=== PATIENT | female | born 2000 | race Caucasian/White ===

== ENCOUNTER 2023-07-31 17:41 | Inpatient (IN) | payer OTHER, MEDICAID, SELFPAY ==
[2023-07-31 19:05] LABS: Add Manual Diff / Slide Review NO; Basophils Absolute Auto 0 /uL (0-100); Basophils Percent Auto 0.2 % (0-2); Eosinophils Absolute Auto 100 /uL (0-450); Eosinophils Percent Auto 0.5 % (2-4); Hematocrit 31.2 % (36-46); Hemoglobin 10.3 g/dL (12.0-16.0); Lymphocytes Absolute Auto 2200 /uL (1100-4500); Lymphocytes Percent Auto 9.6 % (25-40); Mean Corpuscular HGB Conc 33.2 % (30-36); Mean Corpuscular Hemoglobin 29.1 PG (26-34); Mean Corpuscular Volume 87.9 fL (80-100); Monocytes Absolute Auto 1600 /uL (0-900); Neutrophils Absolute Auto 18700 /uL (1500-7000); Neutrophils Percent Auto 82.7 % (50-75); Platelet Count 382 X10^3/uL (150-400); Red Blood Cell Count 3.55 X10^6/uL (4.0-5.2); Red Cell Distribution Width 13.9 % (11.6-14.8); White Blood Cell Count 22.6 X10^3/uL (4.5-11.0)
[2023-07-31 19:10] VITALS: BP 119/78
--- NOTE | 2023-07-31 19:52 | P.HPOB_ITS ---
OB HPI Date/Time Date of admission: 07/31/23 Date Patient Seen: 07/31/23 Time Patient Seen: 18:45 History of Present Condition Chief complaint: labor : 2 Para: 0 Estimated Date of Delivery: 08/16/23 Estimated Gestational Age (weeks): 37w5d Narrative: Joanne Roach is a 23 year old female at 37w5 days by 10 week ultrasound. She has been laboring off and on for a couple of days and presented to clinic tonight with contractions more consistent for 20 hours and a cervical exam indicating she was in active labor. Joanne had a complicated by a previa which resolved at 28 weeks. She is allergic to penicillin. Joanne is here [facility], well supported by her boyfriend, Roger, and her grandmother, Sabiha, and they are giving baby Sabiha's middle name as her middle name. Joanne is planning an unmedicated labor and declines an IV at this time. She denies loss of fluid, headache, epigastric pain or visual changes. She is excited to labor in the tub. History of Present care: good care, initiated at week # (5), number of visits (9) and pounds weight gain (35) Dating criteria: based on 1st trimester US only Ultrasounds: normal 1st trimester US and abnormal US findings (Placenta previa diagnosed on anatomy scan; resolved with 28 week ultrasound) Obstetrical complications: other (Early term labor) Medical complications: none Preadmission Labs Blood type: O (+) positive -: Antibody screen: negative, Cystic fibrosis screen: unknown, GBS status: negative, HBsAG: negative, HIV: negative, HSV 1: unknown, HSV 2: unknown and RPR/VDLR: negative -: Chlamydia screen: not detected and Gonorrhea screen: not detected -: Rubella: immune and Varicella: immune HCT: 34.2 HCAB: negative PAP: Normal Cell-free DNA: Negative, XX 1 hr GTT: 91 Prior (ies) History: History of SAB x 1 (2014) Evaluation Evaluation Baseline heart rate: 145 Variability: Moderate (11-25) monitor accelerations: Present Monitor Decelerations: Absent Contraction Frequency (minutes): 3 (2-5) Uterine Contraction Intensity: Moderate Status: Category l Dilation (cm): 5 Effacement (%): 90 Dilation: >/=5 cm Effacement: >/=80% station: 0 Position of cervix: anterior Consistency: soft Ozuna score: 12 Comments: Membranes intact. Cervical exam performed in clinic at 1715 today. [facility] Medical History (Updated 07/31/23 @ 20:07 by Svetlana Maguire CNM, SHAUNA) Penicillin allergy Family History (Updated 07/31/23 @ 20:08 by Svetlana Maguire CNM, SHAUNA) Other Cancer Congenital heart disease Diabetes mellitus Lung disease Social History (Updated 07/31/23 @ 20:10 by Svetlana Maguire CNM, SHAUNA) do you feel safe at home: Yes Smoking Status: Former smoker Smokeless tobacco user: other alcohol intake: current Meds Home Medications and Allergies Home Medications Medication Instructions Recorded Confirmed Type vit no.133-ferrous See Rx Instructions .Route .COMPLEX 07/31/23 07/31/23 History fumarate 28 mg-folic acid 800 mcg tablet () Allergies Allergy/AdvReac Type Severity Reaction Status Date / Time No Known Drug Allergies Allergy Verified 07/31/23 19:14 Review of Systems Review of Systems Narrative: All negative except as mentioned in HPI OB Exam Vital signs Blood Pressure: 119/78 Pulse Rate: 99 Respiratory Rate: 18 Temperature: 98.2 F Narrative Exam Narrative: SpO2 100% Extremities Lower extremity: Yes normal to inspection GI Inspection: normal to inspection Objective Labs 07/31/23 18:15 Labs: Laboratory Results - last 24 hr 07/31/23 18:15 WBC 22.6 H RBC 3.55 L Hgb 10.3 L Hct 31.2 L MCV 87.9 MCH 29.1 MCHC 33.2 RDW 13.9 Plt Count 382 Neut % (Auto) 82.7 H Lymph % (Auto) 9.6 L Grayson % (Auto) 7.0 Eos % (Auto) 0.5 L Baso % (Auto) 0.2 Neut # (Auto) 32447 H Lymph # (Auto) 2200 Grayson # (Auto) 1600 H Eos # (Auto) 100 Baso # (Auto) 0 Blood Type O Positive Antibody Screen Negative Assessment and Plan Assessment and Plan Assessment and Plan narrative: with early term Active labor GBS negative Rh positive FHR Cat 1 on admission strip Anemia of late Admit to L&D Intermittent auscultation Labor support as needed Plan for hemorrhage kit in room Anticipate NSVB
[2023-07-31 20:16] VITALS: BP 119/78; PULSE 99; RESP 18; TEMP 36.8
--- NOTE | 2023-07-31 21:59 | PM.OBPNLAB ---
Date/Time Date Patient Seen: 07/31/23 Time Patient Seen: 21:15 Pain Control Pain control: tolerating well Pelvic Exam Dilation (cm): 6.5 Effacement (%): 90 station: 0 Amniotic membrane status: Ruptured (questionable ROM while in tub approx 2049, clear fluid with bloody mucus) Comments: BP: 118/56 HR: 93 Temp: 36.9 C Contractions Contractions on admission: regular Monitor mode: External Contraction frequency (min): 3 Contraction duration (min): 1 Contraction pattern: Regular Contraction intensity: Moderate Status Heart Rate Baseline: 150 Comments: Decreases noted with contractions Increases noted Reassuring FHR by doppler Assessment and Plan Assessment: active labor Plan: continuous present management
[2023-07-31] MEDS: ONDANSETRON 4 MG ODT SL (22:04)
--- NOTE | 2023-08-01 01:45 | PM.OBPNLAB ---
Date/Time Date Patient Seen: 08/01/23 Time Patient Seen: 01:30 Pain Control Pain control: tolerating well Comments: Joanne is working hard with contractions; just got out of the tub for the 2nd time. Requesting rupture of membranes. Using nitrous oxide for some pain relief. Very well supported by Roger and her grandmother, Sabiha. Pelvic Exam Dilation (cm): 8 Effacement (%): 90 station: 0 Amniotic membrane status: Ruptured (BBOW note on exam; AROM at 0130 by CNM) Comments: Small amt of edema on anterior cervix. Unable to palpate suture; baby asynclitic Contractions Monitor mode: External Contraction frequency (min): 3 Contraction pattern: Regular Contraction intensity: Moderate Status status: Category l Heart Rate Baseline: 140 Comments: Increases noted. Decreases absent. Reassuring FHR. VS: 118/56 HR: 93 bpm T: 36.9 C Assessment and Plan Assessment: active labor (Early term nullip. GBS neg. Reassuring FHR. ) Plan: continuous present management (Suggest position changes to help baby rotate. Continue beside labor support. )
[2023-08-01] MEDS: METHYLERGONOVINE 0.2 MG/ML VIAL IM (02:50)
[2023-08-01] MEDS: ACETAMINOPHEN 325 MG TABLET 650 MG PO (03:27)
[2023-08-01] MEDS: KETOROLAC 30 MG/ML VIAL IV (03:28)
--- NOTE | 2023-08-01 03:34 | PM.OBPRVD ---
Labor & Delivery Delivery date: 08/01/23 Intrapartal Events: Prolonged Active Phase Cervical ripening method: none Induction method: none Delivery augmentation: rupture of membranes Delivery monitor: external FHT Route of delivery: L&D Laceration Description: None Quantitative Blood Loss: 241 Anesthesia Type: None Narrative: Labor progressed slowly. After spending 25 minutes in hands and knees on the CUB just after AROM at 8 cm, Joanne began to feel the spontaneous urge to push. She pushed very effectively for a short 2nd stage. FHR was reassuring throughout 2nd stage by doppler. NSVB of baby at 0236, shoulders delivered easily with tight fit of shoulders, arms and body through intact perineum. Baby stimulated and dried by CNM while Joanne had a moment to recover and then turned over. Baby girlSophia was placed on maternal abdomen when Joanne was ready to receive her. Apgars 8/8. They remained skin to skin while cord double clamped by CNM and cut by Dunbar. Placenta delivered spontaneously with maternal efforts and appeared to be intact. 3 vessel cord noted. Cord blood collected for blood typing. No lacerations noted with inspection. Light bleeding throughout active labor and large clots with placental delivery, so pitocin IV and methergine given IM. Blood loss measured and estimated loss is 231 mL. Mom and baby left stable and is being initiated. Joanne and Roger are thrilled to meet their baby girlSophia. Svetlana VILLATORO, CNM, IBCLC Baby 1: gender: Female Presentation: vertex Position: Right Occiput Anterior Placenta delivery description: Spontaneous Cord Vessel Description: 3 Vessels score (1 min): 8 score (5 min): 8 weight: 3.456 kg Plan for aftercare: Routine care
[2023-08-01] MEDS: IBUPROFEN 600 MG TABLET PO ×2 (09:14→15:36)
[2023-08-02] MEDS: IBUPROFEN 600 MG TABLET PO (00:15)
--- NOTE | 2023-08-02 10:06 | PM.OBDS.1 ---
Discharge Providers Provider Date of admission: 07/31/23 17:41 Discharge Date: 08/02/23 Primary care physician: Doctor Kwame MD Consults: 07/31/23 19:14 Consult to Anesthesiology Urgent Comment: Consulting Provider: Anesthesiologist Reason for consultation: Epidural Has provider been notified: No 08/02/23 03:04 Consult to Assistant Secretary Routine Comment: Discharge provider: Svetlana Maguire CNM, ARNP Summary Hospital Course Date Patient Seen: 08/02/23 Time Patient Seen: 09:30 Diagnoses: Z34.03, 080, Z3A.37, Z37.0 at 37 weeks, intact perineum Hospital Course: Arrived in early labor, normal labor progression, NSVB, intact perineun, normal blood loss. Normal course. . Peripartum Data Infant Delivery Method: Natural Vaginal Laceration Description: None Procedures: NSVB. 1: Gender: Female Disposition of : home Discharge Diagnosis (1) Breast feeding status of mother: Status: Acute (2) (normal spontaneous vaginal delivery): Status: Acute (3) Delivery normal: Status: Acute Time Spent with Patient Time attestation: Total time spent providing and/or coordinating discharge services: Objective Labs 07/31/23 18:20 Exam Vital Signs (past 8 hours): 115/63 70 bpm 98.8 F Other: Fundus firm at U-2, midline. Lochia scant Perineum intact with minimal edema Discharge Plan Discharge Plan Patient Disposition: Home Discharge orders & Medications Prescriptions: Continued 28-800 mg-mcg Tablet See Rx Instructions .ROUTE .COMPLEX Protocol: TITRATE PER PROTOCOL Rx Instructions: Take as directed Medication counseling provided by Pharmacist: No Follow up/Referrals: Svetlana Maguire CNM, ARNP [Advanced Floor Covering Printer Assistant] - 2 Weeks (2 week and 6 week visits scheduled; patient has e-mail confirmations) Diet/Activity/Treatments Diet: Diet as Tolerated and Regular Diet comment: Increase fiber and fluid to support stool Activity: low willoughby for at least 2 weeks Cold/Heat Therapy: use as needed for pain Skin/Wound/Dressing Care Skin care: usual care Report to your healthcare provider any signs of infection, such as:: chills, fever, unusual drainage and unusual redness Visit Report/Discharge Packet Stand Alone Forms: Discharge: Care, Patient Portal/API Discharge Data Primary Care Provider: Brecellaneous,Doctor
[2023-08-02 10:20] VITALS: BP 112/70; PULSE 81; RESP 18; TEMP 36.8
== END 2023-08-02 11:06 | disposition home or self-care (01) | DRG 560 ==
PROVIDERS: Admitting Provider Advanced Practice Midwife; Referring Provider Advanced Practice Midwife; Visit Provider Advanced Practice Midwife
DX: O63.1 Prolonged second stage (of labor) (principal); Z3A.37 37 weeks gestation of pregnancy; Z37.0 Single live birth
CPT/HCPCS: 59050; 85025; 86850; 86900; 86901; J1885; J2210

== ENCOUNTER 2025-01-30 11:56 | Inpatient (IN) | payer OTHER, SELFPAY ==
--- NOTE | 2025-01-30 | DI.US.S_ITS ---
PROCEDURE: US OB LIMITED INDICATIONS: ACTIVE LABOR; TWIN POSITIONS, EFW The calculations are made using the marking AYANNA of 03/26/2020. TECHNIQUE: Real-time scanning was performed of the fetuses, with image documentation and biometric measurements. Endovaginal scanning: No COMPARISON: None. FINDINGS: General: An intrauterine dichorionic-diamniotic twin is present, as evidenced by separate placentas, differing sexes, or an intervening membrane of greater than 2 mm. Composite amniotic fluid index: Subjectively adequate Maternal cervical canal: Nonvisualized FETUS A: Fetus is located on the maternal right side, and is in vertex presentation. Placental position is anterior , without previa. heart rate: 137 beats per minute. biometrics: Biparietal diameter: 8.2 cm, 33 week 1 day Head circumference: 30.1 cm, 33 week 2 day Abdominal circumference: 28.0 cm, 32 week 1 day Femur length: 6.2 cm 32 week 1 day Clinically estimated gestational age: 32 week 1 day Composite gestational age from present scan: 32 week 5 day Estimated weight and percentile: 1951 g, 45 percentile FETUS B: Fetus is located on the maternal left side, and is in transverse presentation. Placental position is anterior, without previa. heart rate: 178 beats per minute. biometrics: Biparietal diameter: 8.2 cm, 33 week 0 day Head circumference: 30.8 cm, 34 week 2 day Abdominal circumference: 28.1 cm, 32 week 1 day Femur length: 6.2 cm, 32 week 1 day Clinically estimated gestational age: 32 week 1 day Composite gestational age from present scan: 33 week 0 day Estimated weight and percentile: 1973 g, 49% IMPRESSION: Twin consistent with 32 week gestation Approved by: Jose Perez M.D. on 01/30/2025 at 14:22
[2025-01-30] MEDS: LACTATED RINGERS 1,000 ML 1000 ML IV (13:10)
--- NOTE | 2025-01-30 13:11 | P.HPOB_ITS ---
OB HPI Date/Time Date of admission: 01/30/25 Date Patient Seen: 01/30/25 Time Patient Seen: 13:01 History of Present Condition Chief complaint: labor AYANNA Calculator Estimated Delivery Date Method Current WG Current Estimate 03/16/25 Ultrasound #2 33w 4d Other Estimates 03/19/25 LMP (Certain) 33w 1d 03/26/25 Ultrasound #1 32w 1d 03/16/25 Manual 33w 4d # 2 : 4 Para: 1 Narrative: 25 yo presenting with regular contractions for the last 3 days. She noted LOF As well. complicated by Di-di twin gestation, most recently A Vertex/B breech. Also complicated by late AYAD due to twin gestation. DAting somewhat unclear, noted in charts from outside facility to be dated by IVF but pt was not IVF . Current dating by 17 week US done at outside facility incongruent with 1st trimester US and LMP (dating decision made by MFM) care: good care Dating criteria OB: based on 2nd trimester US only Obstetrical complications: other (Di-di twins ) Preadmission Labs Last OB Lab Results: Blood Type O Positive 07/31/23, 18:15 Antibody Screen Negative 07/31/23, 18:15 Hct, (36-46) 29.9 % L Today, 13:10 Hgb, (12.0-16.0) 10.0 g/dL L Today, 13:10 Group B Strep (PCR) Presumptive neg gbs Today, 01:30 Genetic Screens: Quad screen: Normal Prior (ies) Past Pregnancies Del. Date GA/Weeks Labor Lgth Wt Sex Route Outcome Anesthesia Place Delv Breastfeed Preg Comp Name 05/21/16 5 elective 08/01/23 37+ 7 7 lb 10 oz Female vaginal live - full term n one IH 5 months Sophia Delivery Date: 05/21/16 Last Updated by: Kellie Graves, RN PO meds only, no complications Evaluation Evaluation Comments: Baby A: Baseline- 130 Accels- + Decels- none Baby B: baseline - 140 Acels- + Decels - non TOCO- contractions q2-4min PFSH Medical History (Updated 01/03/25 @ 16:00 by Stephanie Salamanca MD) (normal spontaneous vaginal delivery) Penicillin allergy Surgical History (Updated 09/10/24 @ 08:05 by Kellie Graves RN) No pertinent past surgical history Family History (Updated 09/10/24 @ 08:33 by Kellie Graves RN) Mother Cancer Heart disease Grandfather Diabetes mellitus Other Congenital heart disease Lung disease Social History (Updated 07/31/23 @ 20:10 by Svetlana Maguire CNM, LOGGING EQUIPMENT OPERATOR) marital status: unmarried,living together number of children: 1 household members: significant other and children lives independently: Yes caregiver/support person: Yes housing: house pets and animals: Yes (dogs) education level: high school occupational status: unemployed current occupational exposures/hazards: No special megan needs: No travel history: over 6 months ago seatbelt use: always water heater temp set < 120 deg: Yes working smoke detector in home: Yes fire extinguisher in home: Yes carbon monox detector in home: Yes firearms in home: Yes firearms unloaded and locked: Yes do you feel safe at home: Yes Tobacco: How many years used: 3 Smokeless tobacco user: other second hand exposure: No alcohol intake: former substance use type: does not use during the past year weight has: other well-balanced diet: about half the time daily servings fruits/ve-4 caffeine: Yes (occasional soft drink) Type(s) of exercise: walking Meds Home Medications and Allergies Home Medications ?Medication ?Instructions ?Recorded ?Confirmed ?Type vits no.133-ferrous See Rx Instructions .Latoya HerrCOMPLEX 07/31/23 12/06/24 History fumarate 28 mg-folic acid 800 mcg tablet () ferrous sulfate 325 mg (65 mg 325 mg PO Q OTHER DAY 12/06/24 History iron) tablet (FeroSul) pantoprazole 40 mg tablet,delayed 40 mg PO DAILY #30 t abs 01/03/25 01/03/25 Rx release (Protonix) Allergies Allergy/AdvReac Type Severity Reaction Status Date / Time No Known Drug Allergies Allergy Verified 12/06/24 15:40 Review of Systems Review of Systems Narrative: + regular contractions - LOF + movement - vaginal bleeding OB Exam Narrative Exam Narrative: GEN: comfortable appearing Pulm: breathing comfortably on RA ABd: gravid MSK: laying in bed, moving all extremities neuro: non-focal Assessment and Plan Assessment and Plan Assessment and Plan narrative: 25 yo presenting at 33w4d with Di-Di twins for regular contractions labor: Amnisure negative - admit to LD - SVE 7cm so unable to transfer - Transport called for babies - GBS, UA, Gc/chl amd wet mount sent - BMZ administered x1 - US called to bedside for size assessment and position assessment - GBs unknown- start ppx - plan for delivery in OR while set up for emergency CS Di-Di twins: - US for position and size assessment Fam hx of PCN allergy: pt declines Amp, will use Clinda for GBS ppx counseling: It was explained to the patient that a section is a surgery to deliver the baby through an incision in the abdominal wall and uterus.? All procedures can be associated with risk and unforeseen complications, which can be immediate or delayed.? Risks and complications of section include, but are not limited to:? infection of the uterus, pelvic organs, or skin; inadvertent injury to internal organs such as the bowel, bladder, or possibly even the baby; blood loss, transfusion, and/or life-threatening hemorrhage requiring hysterectomy; blood clots in the legs, pelvic organs, or lungs; adverse reaction to medications or anesthesia during surgery; development of placenta accreta spectrum in a subsequent ; and increased risk of section in a subsequent . Time-Based Coding :: [TOTAL MINUTES] spent with patient and on the chart (including review of chart, obtaining history, exam, reviewing outside data, placing orders, documenting exam and treatment plan, and counseling patient) on [DATE].
[2025-01-30] MEDS: BETAMETHASONE 30 MG/5 ML MDV 12 MG IM (13:23)
[2025-01-30 13:30] VITALS: BP 136/79
[2025-01-30 13:37] LABS: Add Manual Diff / Slide Review NO; Hematocrit 29.9 % (36-46); Hemoglobin 10.0 g/dL (12.0-16.0); Lymphocytes Absolute Auto 1800 /uL (1100-4500); Mean Corpuscular HGB Conc 33.6 % (30-36); Mean Corpuscular Hemoglobin 27.7 PG (26-34); Mean Corpuscular Volume 82.3 fL (80-100); Platelet Count 356 X10^3/uL (150-400)
[2025-01-30 13:53] LABS: Alanine Aminotransferase 12 IU/L (<35); Albumin 3.7 g/dL (3.5-5.0); Albumin Globulin Ratio 1.1 (1.0-2.8); Alkaline Phosphatase 171 U/L (38-126); Blood Urea Nitrogen 6 mg/dL (7-17); Calcium 8.8 mg/dL (8.4-10.2); Carbon Dioxide 19 mmol/L (22-32); Chloride 107 mmol/L (98-107); Estimated Glomerular Filt Rate > 60 mL/min (>60); Globulin 3.3 g/dL (1.7-4.1); Glucose 79 mg/dL (70-99); HEMOLYSIS < 15 (0-50); Potassium 3.8 mmol/L (3.4-5.1); Sodium 135 mmol/L (137-145); Total Protein 7.0 g/dL (6.3-8.2)
[2025-01-30] MEDS: CLINDAMYCIN 900 MG/50 ML PIGGYBACK 50 MG IV (14:35)
[2025-01-30 14:49] LABS: Strep Grp B PCR PRESUMPTIVE NEG GBS
[2025-01-30 14:52] LABS: Add Manual Diff / Slide Review YES
--- NOTE | 2025-01-30 15:25 | P.PCN_ITS ---
Regional Block Pre-procedure PMH/ROS narrative: pt with active labor, twins (vertex, breech) ASA Class: III Labs: Hct 29.9 % (36-46) L 01/30/25 13:10 Hct TNP 01/30/25 13:10 Plt Count 356 X10^3/uL (150-400) 01/30/25 13:10 Plt Count TNP 01/30/25 13:10 Medications: Current Medications Generic Name Dose Route Start Last Admin Trade Name Tata PRN Reason Stop Dose Admin Lactated Ringer's 1,000 mls @ 150 mls/hr 01/30/25 13:00 Lactated Ringers IV CONT NANETTE Clindamycin Phosphate 900 mg in 50 mls @ 50 mls/hr 01/30/25 14:15 01/30/25 14:35 Cleocin IV 50 mls/hr Q8H NANETTE Administration Allergies: Allergies Allergy/AdvReac Type Severity Reaction Status Date / Time No Known Drug Allergies Allergy Verified 12/06/24 15:40 --: h and p obtained. r/b/a discussed. pt consent to proceed. pt anxious. pt in sitting position. drape and prep using sterile technique. l3 l4 interspace identified. lido 1% 3 cc skin wheel. tuohy through skin until BRANDAN to saline. cat heter placed. after ultrasound pt found to still have vertex and breech presentation. decision made to deliver vaginally in the OR. Procedure Insertion date: 01/30/25 Insertion time: 14:08 Prep/Local: betadine x3 (chloraprep) and 1% lidocaine (3 cc) Interspace: l3 l4 Patient position: sitting Needle: 17 gauge Tuohy Loss of resistance with: saline BRANDAN at (cm): 6 Catheter placed at SKIN (cm): 12 Sensory level: t8 Insertion: No CSF, No Blood, No Paresthesia with insertion, No Paresthesia with injection and No Test dose reaction Initial Medications TEST DOSE time: 14:08 TEST DOSE: 1.5% lidocaine with epinephrine 1:200k (mL): 3 BOLUS DOSE time: 14:16 BOLUS DOSE (mL): 5 BOLUS DOSE med: other (infusate) Infusion INFUSION: 0.125% bupivacaine and with fentanyl 2 mcg/mL Post-procedure Anesthesia date START: 01/30/25 Anesthesia time START: 13:57 Anesthesia date END: 01/30/25 Anesthesia time END: 15:50 Post-procedure Anesthesia Assessment: Yes CV function: HR/BP stable, Yes Resp function: RR/sat/airway adequate, Yes Post-op hydration adequate, Yes Pain control adequate, Yes Nausea & vomiting absent, Yes Temperature > 36 C, Yes Mental status appropriate and Yes Anesthesia complications
--- NOTE | 2025-01-30 16:05 | P.PCNOB_ITS ---
Events: Labor < 37 wks Labor & Delivery Delivery date: 01/30/25 Delivery Time: 15:34 Delivery augmentation: rupture of membranes Delivery monitor: external FHT and internal FHT Route of delivery: L&D Laceration Description: None Estimated blood loss (mL): 250 Anesthesia Type: Epidural Complications: labor Di-Di twins Narrative: PROCEDURE: 25yo at 33w4d presented with labor and was admitted to Labor and Delivery. She was given BMZ x1, started on clindamycin for GBS ppx and received 1 dose and was given 1 L IVF. TRasnport team was contacted to prepare for delivery. labor work up was initiated and is still pending. US was used to confirm position, Baby A vertex with EFW 1951g and B transverse with EFW of 1973g. Pt was taken to the OR to be ready for potential conversion to CS. She was placed in dorsal lithotom with external monitors in place and FHT reassuring. AROM occured at 15:91with clear fluid. descent was noted and cervix was noted to be completely dilated. She began pushing and delivered a viable Male , infant A, baby Seun, with APGARs 8/9 at 15:34 via EVER. The cord was cut and clamped after a 30 second delay with 1 cord clamp and was handed to waiting wire inspector. US was used to check Baby B position, found to be vertex. AROM occured at 15:38 with clear fluids. FSE was placed for improved monitoring. She began pushing and delivered a viable Male infant, B, Baby Chris, with APGARs 8/8 at 15:41 via EVER with a nuchal arm. The cord was cut and clamped after a 60 second delay with 2 cord clamps and was handed to waiting wire inspector. The placenta delivered with gentle cord traction, and appeared complete with two membranes and one placenta, both cords 3 vessel, both cords were marginal. The perineum and vagina were inspected with no lacerations. Needle and sponge counts were correct.? The vagina was inspected and no items were left in situ. PREPROCEDURE DIAGNOSIS: Intrauterine at 33w4d (dating by 17 week US with MFM, incongruent with 1st trimester US and LMP) GBS unknown Di-Di twins pre-term labor RH positive POSTPROCEDURE DIAGNOSIS: Intrauterine at 33w4d, delivered inadequate GBS ppx Same as pre-procedure [place] Baby Seun: gender: Male Presentation: vertex Position: Left Occiput Anterior Placenta delivery description: Spontaneous Cord Vessel Description: 3 Vessels score (1 min): 8 score (5 min): 9 Chris: gender: Male Presentation: vertex Position: Left Occiput Anterior Placenta delivery description: Spontaneous Cord Vessel Description: 3 Vessels score (1 min): 8 score (5 min): 8 Plan for aftercare: Routine care
--- NOTE | 2025-01-30 16:33 | PM.OBDS.1 ---
Discharge Providers Provider Date of admission: 01/30/25 11:56 Discharge Date: 01/30/25 Primary care physician: Doctor Kwame MD Discharge provider: Karlene Martin MD Summary Hospital Course Date Patient Seen: 01/30/25 Time Patient Seen: 16:33 Hospital Course: 25yo at 33w4d (by 17w MFM US incongruent with LMP and 1st trimester) who presented with labor and was admitted to Labor and Delivery. She was given BMZ x1, started on clindamycin for GBS ppx and received 1 dose and was given 1 L IVF. Transport team was contacted to prepare for delivery. labor work up was initiated and is still pending. US was used to confirm position, Baby A vertex with EFW 1951g and B transverse with EFW of 1973g. Pt was taken to the OR to be ready for potential conversion to CS. She was placed in dorsal lithotom with external monitors in place and FHT reassuring. AROM occured at 15:91with clear fluid. descent was noted and cervix was noted to be completely dilated. She began pushing and delivered a viable Male infant, A, baby Seun, with APGARs 8/9 at 15:34 via EVER. The cord was cut and clamped after a 30 second delay with 1 cord clamp and was handed to waiting accounting manager controller. US was used to check Baby B position, found to be vertex. AROM occured at 15:38 with clear fluids. FSE was placed for improved monitoring. She began pushing and delivered a viable Male infant, infant B, Baby Chris, with APGARs 8/8 at 15:41 via EVER with a nuchal arm. The cord was cut and clamped after a 60 second delay with 2 cord clamps and was handed to waiting accounting manager controller. The placenta delivered with gentle cord traction, and appeared complete with two membranes and one placenta, both cords 3 vessel, both cords were marginal. The perineum and vagina were inspected with no lacerations. she is doing well. She is voiding and ambulating without difficulty. she wishes to discharge tonight to be with her infants. Return precautions discussed Peripartum Data Delivery Method: Natural Vaginal Laceration Description: None complications: none Barton Seun: Gender: Male Disposition of : NICU (transferred to higher level of care ) Chris: Gender: Male Disposition of : NICU (transferred to higher level of care ) Status at Discharge Cognitive/behavioral status at discharge: oriented Functional status at discharge: independent ambulation Time Spent with Patient Time attestation: Total time spent providing and/or coordinating discharge services: Time spent: Less than 30 minutes Objective Labs 01/30/25 13:10 01/30/25 13:10 Labs: Laboratory Results - last 24 hr 01/30/25 01/30/25 01/30/25 01:30 13:10 13:10 WBC 13.2 H TNP RBC 3.63 L Hgb Hct MCV MCH MCHC RDW Plt Count Neut % (Auto) Lymph % (Auto) Mccracken % (Auto) Eos % (Auto) Baso % (Auto) Neut # (Auto) Lymph # (Auto) Mccracken # (Auto) Eos # (Auto) Baso # (Auto) Total Counted RBC Morphology Sodium Potassium Chloride Carbon Dioxide BUN Creatinine Estimated GFR BUN/Creatinine Ratio Glucose Uric Acid Calcium Total Bilirubin AST ALT Alkaline Phosphatase Total Protein Albumin Globulin Albumin/Globulin Ratio Group B Strep (PCR) Presumptive neg gbs 01/30/25 01/30/25 01/30/25 13:10 13:10 13:10 WBC RBC TNP Hgb 10.0 L TNP Hct 29.9 L TNP MCV 82.3 MCH MCHC RDW Plt Count Neut % (Auto) Lymph % (Auto) Mccracken % (Auto) Eos % (Auto) Baso % (Auto) Neut # (Auto) Lymph # (Auto) Mccracken # (Auto) Eos # (Auto) Baso # (Auto) Total Counted RBC Morphology Sodium Potassium Chloride Carbon Dioxide BUN Creatinine Estimated GFR BUN/Creatinine Ratio Glucose Uric Acid Calcium Total Bilirubin AST ALT Alkaline Phosphatase Total Protein Albumin Globulin Albumin/Globulin Ratio Group B Strep (PCR) 01/30/25 01/30/25 01/30/25 13:10 13:10 13:10 WBC RBC Hgb Hct MCV TNP MCH 27.7 TNP MCHC 33.6 TNP RDW 15.9 H Plt Count Neut % (Auto) Lymph % (Auto) Mccracken % (Auto) Eos % (Auto) Baso % (Auto) Neut # (Auto) Lymph # (Auto) Mccracken # (Auto) Eos # (Auto) Baso # (Auto) Total Counted RBC Morphology Sodium Potassium Chloride Carbon Dioxide BUN Creatinine Estimated GFR BUN/Creatinine Ratio Glucose Uric Acid Calcium Total Bilirubin AST ALT Alkaline Phosphatase Total Protein Albumin Globulin Albumin/Globulin Ratio Group B Strep (PCR) 01/30/25 01/30/25 01/30/25 13:10 13:10 13:10 WBC RBC Hgb Hct MCV MCH MCHC RDW TNP Plt Count 356 TNP Neut % (Auto) 79.5 H Not Reportable Lymph % (Auto) 13.9 L Mccracken % (Auto) Eos % (Auto) Baso % (Auto) Neut # (Auto) Lymph # (Auto) Mccracken # (Auto) Eos # (Auto) Baso # (Auto) Total Counted RBC Morphology Sodium Potassium Chloride Carbon Dioxide BUN Creatinine Estimated GFR BUN/Creatinine Ratio Glucose Uric Acid Calcium Total Bilirubin AST ALT Alkaline Phosphatase Total Protein Albumin Globulin Albumin/Globulin Ratio Group B Strep (PCR) 01/30/25 01/30/25 01/30/25 13:10 13:10 13:10 WBC RBC Hgb Hct MCV MCH MCHC RDW Plt Count Neut % (Auto) Lymph % (Auto) Not Reportable Mccracken % (Auto) 6.1 Not Reportable Eos % (Auto) 0.3 L Not Reportable Baso % (Auto) 0.2 Neut # (Auto) Lymph # (Auto) Mccracken # (Auto) Eos # (Auto) Baso # (Auto) Total Counted RBC Morphology Sodium Potassium Chloride Carbon Dioxide BUN Creatinine Estimated GFR BUN/Creatinine Ratio Glucose Uric Acid Calcium Total Bilirubin AST ALT Alkaline Phosphatase Total Protein Albumin Globulin Albumin/Globulin Ratio Group B Strep (PCR) 01/30/25 01/30/25 01/30/25 13:10 13:10 13:10 WBC RBC Hgb Hct MCV MCH MCHC RDW Plt Count Neut % (Auto) Lymph % (Auto) Mccracken % (Auto) Eos % (Auto) Baso % (Auto) Not Reportable Neut # (Auto) 14296 H TNP Lymph # (Auto) 1800 Not Reportable Mccracken # (Auto) 800 Eos # (Auto) Baso # (Auto) Total Counted RBC Morphology Sodium Potassium Chloride Carbon Dioxide BUN Creatinine Estimated GFR BUN/Creatinine Ratio Glucose Uric Acid Calcium Total Bilirubin AST ALT Alkaline Phosphatase Total Protein Albumin Globulin Albumin/Globulin Ratio Group B Strep (PCR) 01/30/25 01/30/25 01/30/25 13:10 13:10 13:10 WBC RBC Hgb Hct MCV MCH MCHC RDW Plt Count Neut % (Auto) Lymph % (Auto) Mccracken % (Auto) Eos % (Auto) Baso % (Auto) Neut # (Auto) Lymph # (Auto) Mccracken # (Auto) Not Reportable Eos # (Auto) 0 Baso # (Auto) 0 Not Reportable Total Counted Not Reportable RBC Morphology Not Reportable Sodium 135 L TNP Potassium Chloride Carbon Dioxide BUN Creatinine Estimated GFR BUN/Creatinine Ratio Glucose Uric Acid Calcium Total Bilirubin AST ALT Alkaline Phosphatase Total Protein Albumin Globulin Albumin/Globulin Ratio Group B Strep (PCR) 01/30/25 01/30/25 01/30/25 13:10 13:10 13:10 WBC RBC Hgb Hct MCV MCH MCHC RDW Plt Count Neut % (Auto) Lymph % (Auto) Mccracken % (Auto) Eos % (Auto) Baso % (Auto) Neut # (Auto) Lymph # (Auto) Mccracken # (Auto) Eos # (Auto) Baso # (Auto) Total Counted RBC Morphology Sodium Cancelled Potassium 3.8 TNP Cancelled Chloride 107 Carbon Dioxide BUN Creatinine Estimated GFR BUN/Creatinine Ratio Glucose Uric Acid Calcium Total Bilirubin AST ALT Alkaline Phosphatase Total Protein Albumin Globulin Albumin/Globulin Ratio Group B Strep (PCR) 01/30/25 01/30/25 01/30/25 13:10 13:10 13:10 WBC RBC Hgb Hct MCV MCH MCHC RDW Plt Count Neut % (Auto) Lymph % (Auto) Mccracken % (Auto) Eos % (Auto) Baso % (Auto) Neut # (Auto) Lymph # (Auto) Mccracken # (Auto) Eos # (Auto) Baso # (Auto) Total Counted RBC Morphology Sodium Potassium Chloride TNP Cancelled Carbon Dioxide 19 L TNP BUN Creatinine Estimated GFR BUN/Creatinine Ratio Glucose Uric Acid Calcium Total Bilirubin AST ALT Alkaline Phosphatase Total Protein Albumin Globulin Albumin/Globulin Ratio Group B Strep (PCR) 01/30/25 01/30/25 01/30/25 13:10 13:10 13:10 WBC RBC Hgb Hct MCV MCH MCHC RDW Plt Count Neut % (Auto) Lymph % (Auto) Mccracken % (Auto) Eos % (Auto) Baso % (Auto) Neut # (Auto) Lymph # (Auto) Mccracken # (Auto) Eos # (Auto) Baso # (Auto) Total Counted RBC Morphology Sodium Potassium Chloride Carbon Dioxide Cancelled BUN 6 L TNP Creatinine 0.69 TNP Estimated GFR > 60 BUN/Creatinine Ratio Glucose Uric Acid Calcium Total Bilirubin AST ALT Alkaline Phosphatase Total Protein Albumin Globulin Albumin/Globulin Ratio Group B Strep (PCR) 01/30/25 01/30/25 01/30/25 13:10 13:10 13:10 WBC RBC Hgb Hct MCV MCH MCHC RDW Plt Count Neut % (Auto) Lymph % (Auto) Mccracken % (Auto) Eos % (Auto) Baso % (Auto) Neut # (Auto) Lymph # (Auto) Mccracken # (Auto) Eos # (Auto) Baso # (Auto) Total Counted RBC Morphology Sodium Potassium Chloride Carbon Dioxide BUN Creatinine Estimated GFR TNP BUN/Creatinine Ratio 8.7 TNP Glucose 79 TNP Uric Acid TNP Calcium 8.8 Total Bilirubin AST ALT Alkaline Phosphatase Total Protein Albumin Globulin Albumin/Globulin Ratio Group B Strep (PCR) 01/30/25 01/30/25 01/30/25 13:10 13:10 13:10 WBC RBC Hgb Hct MCV MCH MCHC RDW Plt Count Neut % (Auto) Lymph % (Auto) Mccracken % (Auto) Eos % (Auto) Baso % (Auto) Neut # (Auto) Lymph # (Auto) Mccracken # (Auto) Eos # (Auto) Baso # (Auto) Total Counted RBC Morphology Sodium Potassium Chloride Carbon Dioxide BUN Creatinine Estimated GFR BUN/Creatinine Ratio Glucose Uric Acid Calcium TNP Total Bilirubin 0.6 TNP AST 23 TNP ALT 12 Alkaline Phosphatase Total Protein Albumin Globulin Albumin/Globulin Ratio Group B Strep (PCR) 01/30/25 01/30/25 01/30/25 13:10 13:10 13:10 WBC RBC Hgb Hct MCV MCH MCHC RDW Plt Count Neut % (Auto) Lymph % (Auto) Mccracken % (Auto) Eos % (Auto) Baso % (Auto) Neut # (Auto) Lymph # (Auto) Mccracken # (Auto) Eos # (Auto) Baso # (Auto) Total Counted RBC Morphology Sodium Potassium Chloride Carbon Dioxide BUN Creatinine Estimated GFR BUN/Creatinine Ratio Glucose Uric Acid Calcium Total Bilirubin AST ALT TNP Alkaline Phosphatase 171 H TNP Total Protein 7.0 TNP Albumin 3.7 Globulin Albumin/Globulin Ratio Group B Strep (PCR) 01/30/25 01/30/25 01/30/25 13:10 13:10 13:10 WBC RBC Hgb Hct MCV MCH MCHC RDW Plt Count Neut % (Auto) Lymph % (Auto) Mccracken % (Auto) Eos % (Auto) Baso % (Auto) Neut # (Auto) Lymph # (Auto) Mccracken # (Auto) Eos # (Auto) Baso # (Auto) Total Counted RBC Morphology Sodium Potassium Chloride Carbon Dioxide BUN Creatinine Estimated GFR BUN/Creatinine Ratio Glucose Uric Acid Calcium Total Bilirubin AST ALT Alkaline Phosphatase Total Protein Albumin TNP Globulin 3.3 TNP Albumin/Globulin Ratio 1.1 TNP Group B Strep (PCR) Exam Narrative Exam Narrative: GEN: well appearing PSYCH: Good Judgment. AOx3. Normal memory, mood, and affect HEENT: -Head: NC/AT -Eyes: No discharge or redness CV: warm and well perfused LUNGS: breathing comfortably on RA ABD: fundus firm below ulbilicus NEURO: No focal deficits Discharge Plan Discharge Plan Patient Disposition: Home Discharge orders & Medications Prescriptions: Continued ferrous sulfate [FeroSul] 325 mg (65 mg iron) tablet 325 mg PO Q OTHER DAY pantoprazole [Protonix] 40 mg tablet,delayed release (DR/EC) 40 mg PO DAILY Qty: 30 2RF 28-800 mg-mcg Tablet See Rx Instructions .ROUTE .COMPLEX Protocol: TITRATE PER PROTOCOL Rx Instructions: Take as directed Follow up/Referrals: Doctor Puente MD [Primary Care Provider, Medical] Visit Report/Discharge Packet Stand Alone Forms: Patient Portal/API, Stroke Signs & Symptoms Discharge Data Primary Care Provider: Doctor Kwame Attending Provider: Ana Lilia Pierce Admit Date/Time: 01/30/25 11:56
--- NOTE | 2025-01-30 17:18 | PATH_ITS ---
[facility] Accession Number: [id number] No. of containers..01 Tissue . 01 Material submitted: . placenta - PLACENTA . 01 Diagnosis: PLACENTA: Diamniotic-dichorionic twin placenta. Placenta A (twin A with one plastic clamp) with the following features: Villous architecture consistent with third trimester gestational age. membranes; negative for chorioamnionitis. Three-vessel umbilical cord; negative for funisitis, arteritis, true knots or thrombi. Placenta B ( twin B with two plastic clamps with the following features: Villous architecture consistent with third trimester gestational age. membranes; negative for chorioamnionitis. Three-vessel umbilical cord; negative for funisitis, arteritis, true knots or thrombi. No villitis, features of abruption or infarction. MRV 02/10/2025 1444 Local . 01 Electronically signed: . Shilpi Cameron MD, Pathologist NPI- [id number] . 01 Gross description: . Received in formalin with two identifiers and placenta is a discoid twin placenta with a single intact placental disc with a trimmed weight of 833 grams and measuring 20.6 x 20.2 x 3.2 cm. No accessory lobes are identified. A single attached plastic clamp arbitrarily designates umbilical cord A while two plastic clips arbitrarily designate umbilical cord B (no designation per the requisition). . Both membranes are blackwell and translucent with no discoloration or thickening identified. Membrane A is ruptured at 6.2 cm from the nearest disc edge and membrane B is ruptured at the disc edge. . Cord A is 44.4 cm in length and 1.3 cm in average diameter with a leftward coil and index of approximately 2 twists per 5 cm. The cord inserts eccentrically 2.5 cm from the nearest disc edge. Sectioning reveals unremarkable trivascular architecture with no knots or lesions identified. Cord B is 38.4 cm in length by 1.2 cm in average diameter with a leftward coil and an index of approximately 2 twists per 5 cm. The cord inserts eccentrically 1.1 cm from the nearest disc edge, and sectioning reveals unremarkable trivascular architecture with no knots or lesions identified. . The placental A surface is blue-milian with larger caliber arborizing vasculature with no discoloration or lesions identified. Side B surface is pink-milian with smaller caliber arborizing vasculature and a single small white area of discoloration, 0.4 x 0.3 x 0.2 cm. No additional lesions are identified. . The maternal surface of side A is a darker violaceous red-brown with no discoloration or lesions identified. Side B is a letterpress setter pink-brown with no discoloration or lesions identified. A visible difference in color is identified following the dividing membrane. The cut surface of side A is dark red and spongy with no lesions identified while the cut surface of side B is slightly letterpress setter, pink-red to brown with no discoloration of lesions identified. . Sausage Stuffer sections are submitted as follows: A1: Dividing membrane. A2: Placenta A membrane roll. A3: Placenta A cord. A4-A5: Full-thickness placenta A. A6: Placenta B membrane roll. A7: Placenta cord B. A8: Full-thickness placenta B with surface discoloration. A9: Full-thickness placenta B. ([id number]) /MRV 02/08/2025 1312 [facility] . 01 Pathologist provided ICD-10: O43.90 . 01 CPT . 055417 Specimen Comment: A courtesy copy of this report has been sent to [facility] Pathology Performed at: [address] [facility], [place], [place] [id number] MD Samson Jugn MD Phone: [phone]
[2025-01-30 19:25] LABS: Bilirubin Urine UA NEGATIVE (NEGATIVE); Color Urine UA RED; Glucose Urine UA 1+ g/dL (Negative); Ketones Urine UA 3+ (NEGATIVE); Leukocyte Esterase Urine UA NEGATIVE (NEGATIVE); Nitrite Urine UA POSITIVE (Negative); Occult Blood Urine UA 3+ (Negative); Protein Urine UA 3+ (Negative); Specific Gravity Urine UA 1.025 (1.000-1.035); Urobilinogen Urine UA 1.0 E.U./dL (0.2)
[2025-01-30 19:28] LABS: Ur Creatinine Normal (Normal); Ur Specific Gravity Normal (Normal); Urine MDMA Negative (Negative); Urine Methamphetamines Negative (Negative); Urine THC Negative (Negative); Urine Tricyclic Antidepressant Negative (Negative); Urine pH Normal (Normal)
[2025-01-30 19:36] LABS: Appearance Urine UA CLOUDY; pH Urine UA 7.0 (4.5-8.0)
[2025-01-30 19:55] LABS: Protein (Total) Urine Random 592 mg/dL (0-12); Protein Creatinine Ratio Urine 6.90 GRAM/24H
== END 2025-01-30 19:05 | disposition home or self-care (01) | DRG 560 ==
PROVIDERS: Admitting Provider Family Medicine; Referring Provider Family Medicine; Visit Provider Obstetrics & Gynecology
DX: O60.14X1 Preterm labor third trimester with preterm delivery third trimester, fetus 1 (principal); O60.14X2 Preterm labor third trimester with preterm delivery third trimester, fetus 2; O30.043 Twin pregnancy, dichorionic/diamniotic, third trimester; Z3A.33 33 weeks gestation of pregnancy; Z37.2 Twins, both liveborn
CPT/HCPCS: 36415; 59050; 59409; 76812; 76815; 80053; 80305; 81003; 81015; 84112; 85007; 85025; 86850; 86900; 86901; 87081; 87086; 87210; 87491; 87591; 87653; G0378; G0379; J0702; J2590